=== PATIENT | male | born 1970 | race Caucasian/White ===

== ENCOUNTER 2017-07-21 01:55 | Emergency (ER) | payer MEDICARE, BC ==
[2017-07-21] MEDS ORDERED: NS 0.9% 1000 ML* 1,000 ML IV ONE (02:07)
[2017-07-21] MEDS ORDERED: Pantoprazole IV* 40 MG IV ONE (02:08)
[2017-07-21 02:43] LABS: Hematocrit 14 % (42-52); Hemoglobin 4.2 g/dl (14.0-18.0); Mean Corpuscular HGB Conc 30 g/dl (31-36); Mean Corpuscular Hemoglobin 22 pg (27-31); Mean Corpuscular Volume 73 fL (80-94); Mean Platelet Volume 8 um3 (7.4-10.4); Platelet Count 364 10^3/ul (150-450); Red Blood Count 1.92 10^6/ul (4.0-5.4); Red Cell Distribution Width 20 % (10.5-15); White Blood Count 18.7 10^3/ul (3.5-10.8)
[2017-07-21 02:50] LABS: EGFR Non-African American 71.8 (>60)
[2017-07-21] MEDS ORDERED: Pantoprazole IV* 80 MG in NS 0.9% 100 ML* 100 ML IV SCH (03:00)
[2017-07-21 03:09] LABS: INR 0.98 (0.77-1.02)
[2017-07-21 03:40] LABS: ABS Basophils 0.1 10^3/ul (0-0.2); ABS Eosinophils 0.2 10^3/ul (0-0.6); ABS Lymphocytes 1.5 10^3/ul (1.0-4.8); ABS Nucleated RBC 0.5 10^3/ul; Eosinophil % 0.9 % (0-6); Lymphocyte % 7.8 % (25-47); Nucleated Red Blood Cells % 2.6
--- NOTE | 2017-07-21 04:18 | ED ---
Kenya Ferris Julia, scribed for Aj Duran MD on 07/21/17 at 0258 . Syncope/Near Syncope - HPI Summary HPI Summary: This patient is a 46 year old MF BIBA to [facility] with a chief complaint of near syncopal episode.Patient reports nausea, pallor decreased appetite dizziness, and retching since morning of 07/18/17. The patient rates the pain 3/10 in severity. Patient has history of anemia and pyloric valve surgery. Patient takes over the counter Iron supplement daily. Patient is disabled due to chronic LE pain secondary to Lyme disease. - History Of Current Complaint Chief Complaint: EDSyncope Time Seen by Provider: 07/21/17 01:59 Hx Obtained From: Patient Onset/Duration: Gradual Onset, Lasting Days Timing: Constant Associated Head Trauma: No Associated Signs And Symptoms: Other - nausea, pallor decreased appetite dizziness, and retching Related History: Similar Episode/Dx as - patient is anemic - Allergies/Home Medications Allergies/Adverse Reactions: Allergies Allergy/AdvReac Type Severity Reaction Status Date / Time Prochlorperazine Allergy Severe Tartive Verified 07/12/17 13:26 [From Compazine] Dyskinesia Fentanyl Allergy Intermediate Dizziness; Verified 07/12/17 13:26 Altered Mood; Nightmares; Depression PMH/Surg Hx/FS Hx/Imm Hx Endocrine/Hematology History: Reports: Hx Diabetes - Borderline, Hx Anemia, Other Endocrine/Hematological Disorders - Lymes Disease Cardiovascular History: Reports: Hx Hypertension GI History: Reports: Hx Gastroesophageal Reflux Disease, Other GI Disorders - Chronic Nausea Musculoskeletal History: Reports: 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 Psychiatric History: Reports: Hx Depression - Surgical History Surgery Procedure, Year, and Place: [facility] Fundiplication-2000; Tonsillectomy Infectious Disease History: No Infectious Disease History: Denies: Traveled Outside the [place] in Last 30 Days - Family History Known Family History: Positive: Cardiac Disease, Other - [place] maternal and paternal - Social History Alcohol Use: None Substance Use Type: Reports: None Smoking Status (MU): Never Smoked Tobacco Review of Systems Positive: Other - dizziness Positive: Nausea, Other - retching and decreased appetite Positive: Other - pallor All Other Systems Reviewed And Are Negative: Yes Physical Exam Triage Information Reviewed: Yes Vital Signs On Initial Exam: Initial Vitals Temp Pulse Resp BP Pulse Ox 99.1 F 114 20 115/54 98 07/21/17 01:57 07/21/17 01:57 07/21/17 01:57 07/21/17 01:57 07/21/17 01:57 Vital Signs Reviewed: Yes Appearance: Positive: Ill-Appearing Skin: Positive: Pale Head/Face: Positive: Normal Head/Face Inspection Eyes: Positive: Normal Cardiovascular: Positive: Tachycardia Bowel Sounds: Positive: Other - rectal exam reveal melena Musculoskeletal: Positive: Normal Neurological: Positive: Normal Psychiatric: Positive: Normal AVPU Assessment: Alert Diagnostics - Vital Signs Vital Signs Temp Pulse Resp BP Pulse Ox 07/21/17 01:57 99.1 F 114 20 115/54 98 - Laboratory Lab Results: Lab Results 07/21/17 07/21/17 07/21/17 Range/Units 02:27 02:27 02:27 WBC 18.7 H (3.5-10.8) 10^3/ul RBC 1.92 L (4.0-5.4) 10^6/ul Hgb 4.2 L* (14.0-18.0) g/dl Hct 14 L (42-52) % MCV 73 L (80-94) fL MCH 22 L (27-31) pg MCHC 30 L (31-36) g/dl RDW 20 H (10.5-15) % Plt Count 364 (150-450) 10^3/ul MPV 8 (7.4-10.4) um3 Neut % (Auto) Pending Lymph % (Auto) Pending Dupage % (Auto) Pending Eos % (Auto) Pending Baso % (Auto) Pending Absolute Neuts (auto) Pending Absolute Lymphs (auto) Pending Absolute Monos (auto) Pending Absolute Eos (auto) Pending Absolute Basos (auto) Pending Absolute Nucleated RBC Pending Nucleated RBC % Pending Sodium 134 (133-145) mmol/L Potassium 5.0 (3.5-5.0) mmol/L Chloride 103 (101-111) mmol/L Carbon Dioxide 22 (22-32) mmol/L Anion Gap 9 (2-11) mmol/L BUN 34 H (6-24) mg/dL Creatinine 1.10 (0.67-1.17) mg/dL Est GFR ( Amer) 92.3 (>60) Est GFR (Non-Af Amer) 71.8 (>60) BUN/Creatinine Ratio 30.9 H (8-20) Glucose 178 H (70-100) mg/dL Calcium 8.0 L (8.6-10.3) mg/dL Total Bilirubin 0.20 (0.2-1.0) mg/dL AST 9 L (13-39) U/L ALT 9 (7-52) U/L Alkaline Phosphatase 55 (34-104) U/L Ammonia 37 (16-53) mol/L Total Protein 5.4 L (6.4-8.9) g/dL Albumin 3.0 L (3.2-5.2) g/dL Globulin 2.4 (2-4) g/dL Albumin/Globulin Ratio 1.3 (1-3) Result Diagrams: 07/21/17 02:27 07/21/17 02:27 Lab Statement: Any lab studies that have been ordered have been reviewed, and results considered in the medical decision making process. - Radiology CXR Radiology Interpretation Completed By: ED Physician - CXR reveals no acute concern. - EKG 01:53 Cardiac Rate: Tachycardia - at 113 EKG Rhythm: Sinus Tachycardia EKG Interpretation: Normal axis. Normal interval. No ischemic changes. Course/Dx Course Of Treatment: Patient presents with chief complaint of near syncopal episode.Patient reports nausea, pallor decreased appetite dizziness, and retching since morning of 07/18/17. Patient has history of anemia. Patient is tachycardic. Patient is extremely pallor and rectal exam reveals melena. Stool sample contains blood. CXR is negative. Patient's Hgb is extremely low at 4.2.The bloodbank was called at 2:48 for 2 unis of blood. Pt given IV fluids and Protonix. Transfer center was called at 3:28, they stated they will look for bed in ED. At 3:49 I spoke with with transfer center, Dr. Blackmon accepts patient in ER. - Diagnoses Provider Diagnoses: Upper GI bleed - Critical Care Time Critical Care Time: 30-74 min - 50 minutes Discharge - Discharge Plan Condition: Stable Disposition: TRANS HIGHER LVL OF CARE FAC Referrals: Inocencia Florian MD [Primary Care Provider] - The documentation as recorded by the Kenya coats Julia accurately reflects the service I personally performed and the decisions made by me, Aj Duran MD.
--- NOTE | 2017-07-21 07:39 | RAD ---
INDICATION: Dizziness COMPARISON: None TECHNIQUE: An AP portable view obtained at 0215 hours is submitted. FINDINGS: Bones/Soft Tissues: There are no acute bony findings. Cardiomediastinal: The cardiomediastinal silhouette is normal. Lungs: There are no infiltrates. Pleura: There are no pleural effusions. Other: None IMPRESSION: NO ACTIVE DISEASE.
[2017-07-21 08:25] VITALS: BP 127/64
== END 2017-07-21 04:36 | disposition short-term general hospital (02) ==
LOC: ED 01:55
DX: K92.2 Gastrointestinal hemorrhage, unspecified (principal); D64.9 Anemia, unspecified; Z88.8 Allergy status to other drugs, medicaments and biological substances
CPT/HCPCS: 36415; 36430; 71045; 80053; 82140; 82270; 85025; 85610; 85730; 86850; 86900; 86901; 86922; 93005; 96360; 96361; 99285; P9040

== ENCOUNTER 2018-11-30 11:17 | Emergency (ER) | payer MEDICARE, BC ==
[2018-11-30 11:39] VITALS: BP 122/67
--- NOTE | 2018-11-30 12:24 | UC ---
Respiratory Complaint HPI - HPI Summary HPI Summary: 48-year-old male presents with 4-5 day history of a occasionally productive cough. States he also had a severe migraine headache 5 days ago that resolved after taking ibuprofen. Denies fever, chills, nasal congestion, sore throat, chest pain, shortness of breath, abdominal pain, nausea, vomiting or diarrhea. - History of Current Complaint Chief Complaint: UCRespiratory Stated Complaint: URI Time Seen by Provider: 11/30/18 12:00 Hx Obtained From: Patient Pain Intensity: 4 - Allergies/Home Medications Allergies/Adverse Reactions: Allergies Allergy/AdvReac Type Severity Reaction Status Date / Time fentanyl Allergy dizziness,altered Verified 11/30/18 11:39 mood, nightmares, depression prochlorperazine Allergy tartive Verified 11/30/18 11:39 [From Compazine] dyskinesia NSAIDS (Non-Steroidal AdvReac Severe Stomach Verified 11/30/18 11:39 Anti-Inflamma Ulcers Home Medications: Home Medications Melatonin [Ra Melatonin] 10 mg PO BEDTIME 11/30/18 [History Confirmed 11/30/18] Multivitamins/Minerals TAB* [Theragran/minerals TAB*] 1 tab PO DAILY 11/30/18 [ History Confirmed 11/30/18] PARoxetine HCL TAB* [Paxil TAB*] 30 mg PO DAILY 11/30/18 [History Confirmed 11/13] Pantoprazole TAB * [Protonix TAB*] 40 mg PO DAILY 11/30/18 [History Confirmed ] PMH/Surg Hx/FS Hx/Imm Hx Endocrine History: Diabetes Cardiovascular History: Hypertension GI/ History: Gastroesophageal Reflux Psychological History: Anxiety, Depression - Surgical History Surgical History: Yes Surgery Procedure, Year, and Place: Michael Fundiplication-2000; Tonsillectomy - Family History Known Family History: Positive: Cardiac Disease, Other - [place] maternal and paternal - Social History Occupation: Unemployed Lives: With Family Alcohol Use: None Substance Use Type: None Smoking Status (MU): Never Smoked Tobacco Review of Systems All Other Systems Reviewed And Are Negative: Yes Constitutional: Negative: Fever, Chills Eyes: Negative: Drainage, Eye Redness ENT: Negative: Sore Throat, Ear Ache, Nasal Discharge, Sinus Congestion, Sinus Pain/Tenderness Respiratory: Positive: Cough. Negative: Shortness Of Breath Cardiovascular: Negative: Palpitations, Chest Pain Gastrointestinal: Negative: Abdominal Pain, Vomiting, Diarrhea, Nausea Genitourinary: Positive: Negative Musculoskeletal: Positive: Negative Neurological: Positive: Negative Physical Exam - Summary Physical Exam Summary: GENERAL APPEARANCE: Alert and cooperative, chronically ill-appearing male who appears to be in no acute distress. EYES: Conjunctiva clear. No drainage. EARS: External auditory canals and tympanic membranes clear, hearing grossly intact. NOSE: No nasal discharge. THROAT: Pharynx normal. No tonsilar inflammation, swelling, exudate, or lesions. Uvula midline. NECK: Neck supple, non-tender without lymphadenopathy. CARDIAC: Normal S1 and S2. No S3, S4 or murmurs. Rhythm is regular. There is no peripheral edema, cyanosis or pallor. Extremities are warm and well perfused. Capillary refill is less than 2 seconds. Peripheral pulses intact. LUNGS: Clear to auscultation without rales, rhonchi, wheezing or diminished breath sounds. Dry, nonproductive cough. ABDOMEN: Positive bowel sounds. Soft, nondistended, nontender. No guarding or rebound. No masses or hepatosplenomegally. MUSKULOSKELETAL: ROM intact to all extremities. No joint erythema or tenderness. Normal muscular development. Normal gait. SKIN: Skin normal color, texture and turgor. Triage Information Reviewed: Yes Vital Signs: Initial Vital Signs Temp 98.5 F 11/30/18 11:31 Pulse 84 11/30/18 11:31 Resp 16 11/30/18 11:31 BP 122/67 11/30/18 11:31 Pulse Ox 97 11/30/18 11:31 Vital Signs Reviewed: Yes Respiratory Course/Dx - Course Course Of Treatment: 48-year-old male presents with 4-5 day history of a occasionally productive cough. States he also had a severe migraine headache 5 days ago that resolved after taking ibuprofen. Denies fever, chills, nasal congestion, sore throat, chest pain, shortness of breath, abdominal pain, nausea, vomiting or diarrhea. Afebrile. Vital signs stable. Exam is overall unremarkable except for a dry nonproductive cough. Recommending conservative treatment for an acute bronchitis. I provided him with a prescription for Tessalon Perles 1 capsule every 8 hours as needed for cough. He is to follow-up with his primary care provider in 5 days if symptoms do not improve. Disoriented warning symptoms reviewed patient. Verbalizes understanding and agrees with plan of care. - Differential Dx/Diagnosis Differential Diagnosis/HQI/PQRI: Bronchitis, Lower Resp Infection, Sinusitis Provider Diagnosis: Acute bronchitis Discharge - Sign-Out/Discharge Documenting (check all that apply): Patient Departure All imaging exams completed and their final reports reviewed: No Studies - Discharge Plan Condition: Stable Disposition: HOME Prescriptions: Benzonatate CAP* [Tessalon 100 MG CAP*] 100 mg PO TID PRN #15 cap PRN Reason: Cough Patient Education Materials: Acute Bronchitis (ED) Referrals: Inocencia Florian MD [Primary Care Provider] - 5 Days Additional Instructions: Your history and exam are consistent with acute bronchitis which is most often caused by a viral infection. Viral infections do not respond to antibiotics and are limited to the treatment of symptoms. Viral infections typically run their course in 7-10 days. Get plenty of rest. Drink plenty of fluids. Run a cool mist humidifer in your room at night. Take over the counter acetaminophen (Tylenol) or ibuprofen (Advil, Motrin) according to directions as needed for pain or fever. Take Tessalon Perles 1 cap every 8 hours as needed for cough. Follow up with your primary care provider in 5 days if symptoms do not improve. Seek immediate medical attention in the emergency room if you have fever greater than 100.5 F despite taking acetaminophen or ibuprofen, have chest pain , difficulty breathing, or have any worsening of symptoms. - Billing Disposition and Condition Condition: STABLE Disposition: Home
== END 2018-11-30 12:30 | disposition home or self-care (01) ==
LOC: UCEAST 11:17
DX: J20.9 Acute bronchitis, unspecified (principal); E11.9 Type 2 diabetes mellitus without complications; I10 Essential (primary) hypertension; F41.8 Other specified anxiety disorders; K21.9 Gastro-esophageal reflux disease without esophagitis
CPT/HCPCS: 99212; G0463